=== PATIENT | male | born 1980 ===

== ENCOUNTER → 2019-11-14 08:51 | Outpatient (CLI) | payer BC, SELFPAY ==
--- NOTE | ~2019-11-14 | MR_ITS ---
EXAMINATION: MR ankle RT wo con DATE: 11/14/2019 09:56 INDICATION: Right ankle pain TECHNIQUE: Magnetic resonance imaging (MRI) of the right ankle was performed without intravenous cont rast. Sequences included sagittal, coronal, and axial proton-density weighted fast spin echo without and with fat saturation. COMPARISON: None. FINDINGS: Medial ankle ligaments: Deep and superficial deltoid ligaments as well as the spring ligament are normal. Lateral ankle ligaments: The anterior and posterior inferior tibiofibular ligaments are normal. The anterior talofibular, calc aneofibular and posterior talofibular ligaments are normal. Tendons: Mild thickening and increased signal within the distal Achilles tendon consistent with mild tendinosi s without discrete tear. There is a small enthesophyte and adjacent enthesopathic ossicle with associ ated mild marrow edema along the ulnar side of the calcaneal insertion of the distal Achilles tendon. This immediately underlies the marker indicating the lesion of concern. The peroneus longus and brev is tendons are normal. The tibialis anterior and extensor hallucis longus and extensor digitorum long us tendons are normal. The tibialis posterior, flexor digitorum longus and flexor hallucis longus ten dons are normal. Small amount of fluid extending within the tibialis posterior tendon sheath consiste nt with mild tenosynovitis. Plantar fascia: Plantar aponeurosis is normal. Bones/other: Bone alignment is normal. No acute fracture. Suggestion of possible old healed avulsion fracture defo rmity at the tip of the lateral malleolus. Small region of high-grade chondral malacia along the medi al margin of the talar dome with chondral surface irregularity and underlying mild subarticular marro w edema. Fluid: Physiologic amount of fluid in the joint spaces. IMPRESSION: 1. Mild Achilles enthesopathy with mild distal tendinosis and mild reactive edema associated with a s mall enthesophyte and enthesopathic ossicle at the medial insertion of the distal Achilles tendon whi ch appears to correspond to the palpable abnormality of concern. 2. Mild tibialis posterior tenosynovitis. 3. 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 Reviewed, dictated and finalized at location A. IMPRESSION: 1. Mild Achilles enthesopathy with mild distal tendinosis and mild reactive christina ma associated with a small enthesophyte and enthesopathic ossicle at the medial insertion of the distal Achilles tendon which appears to correspond to the pal pable abnormality of concern. 2. Mild tibialis posterior tenosynovitis. 3. 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
== END ==
PROVIDERS: Visit Provider Physician Assistant
DX: M25.571 Pain in right ankle and joints of right foot (principal); M77.8 Other enthesopathies, not elsewhere classified; M65.871 Other synovitis and tenosynovitis, right ankle and foot; M94.271 Chondromalacia, right ankle and joints of right foot
CPT/HCPCS: 73721